=== PATIENT | female | born 1960 | race Caucasian/White ===

== ENCOUNTER 2020-06-18 10:55 | Outpatient (REF) | payer MEDICARE, MEDICAID, SELFPAY ==
[2020-06-18 12:08] LABS: Hematocrit 38.9 % (37-47); Hemoglobin 12.5 g/dl (12.0-16.0); Mean Corpuscular HGB Conc 32.1 g/dl (31.0-35.0); Mean Platelet Volume 10.4 fL (9.4-12.3); Platelet Count 237 X10*3/uL (160-400); Red Blood Count 4.63 X10*6/uL (4.20-5.50); White Blood Count 7.5 X10*3/uL (4.8-10.8)
[2020-06-18 12:35] LABS: Alanine Aminotransferase 27 U/L (0-31); Alkaline Phosphatase 99 U/L (39-117); Aspartate Amino Transferase 29 U/L (5-31); Bilirubin Direct 0.3 mg/dL (0.0-0.5); Bilirubin Total 0.8 mg/dL (0.0-1.0)
== END 2020-06-18 10:56 | disposition home or self-care (01) ==
LOC: HO.10HDL 10:55
PROVIDERS: Visit Provider Internal Medicine Gastroenterology
DX: R79.89 Other specified abnormal findings of blood chemistry (principal)
CPT/HCPCS: 36415; 80076; 85027

== ENCOUNTER 2020-12-07 08:43 | Outpatient (REF) | payer MEDICARE, MEDICAID, SELFPAY ==
--- NOTE | ~2020-12-07 | FL_ITS ---
EXAMINATION: XR BARIUM ENEMA WITH AIR CLINICAL INFORMATION: Irritable bowel syndrome with constipation. COMPARISON: None TECHNIQUE: Press Feeder Broomcorn KUB prior to barium enema. FINDINGS: Press Feeder Broomcorn study demonstrates a large amount of stool within the rectosigmoid and left colon. Some stool is also seen within the transverse colon. Patient states that after taking the prep, she had no bowel movement. Barium enema was canceled. There is some gaseous distention without dilatation of a few loops of small bowel. Multilevel degenerative disc disease is noted within the lumbar spine. Changes of enthesopathy about the pelvis noted. FL/FL barium enema w air contrast IMPRESSION: Cancellation of barium enema due to large amount of stool remaining within the colon.
== END 2020-12-07 08:44 | disposition home or self-care (01) ==
LOC: HO.XRAY 08:43
PROVIDERS: Visit Provider Internal Medicine Gastroenterology
DX: K58.1 Irritable bowel syndrome with constipation (principal)
CPT/HCPCS: 74280